=== PATIENT | female | born 1990 | race Caucasian/White ===

== ENCOUNTER 2017-05-01 19:19 | Emergency (ER) | payer OTHER ==
[~2017-05-01] VITALS: Ht 160 cm; Wt 82.0 kg
[2017-05-01] MEDS ORDERED: ALBUTEROL2.5 MG/3 M IH (20:21)
[2017-05-01 21:10] LABS: ADD MIUA? NO; BILIRUBIN NEGATIVE; BLOOD NEGATIVE; COLOR STRAW ((YELLOW)); GLUCOSE (STRIP) NEGATIVE; KETONES NEGATIVE; LEUKOCYTES NEGATIVE; NITRITE NEGATIVE; PROTEIN (STRIP) NEGATIVE; SPECIFIC GRAVITY 1.012 (1.000-1.030); UCUL ADDED? NO; UROBILINOGEN 0.2 MG/DL (0.2-1.0)
[2017-05-01] MEDS ORDERED: PREDNISONE10 M1 PO (22:19)
[2017-05-01 22:56] VITALS: BP 127/65
== END 2017-05-01 22:59 | disposition home or self-care (01) ==
LOC: EME 19:19
PROVIDERS: Physician Assistant
DX: O98.511 Other viral diseases complicating pregnancy, first trimester (principal); R09.1 Pleurisy; J06.9 Acute upper respiratory infection, unspecified; O99.511 Diseases of the respiratory system complicating pregnancy, first trimester; J45.909 Unspecified asthma, uncomplicated; Z3A.08 8 weeks gestation of pregnancy; Z88.2 Allergy status to sulfonamides; Z88.8 Allergy status to other drugs, medicaments and biological substances
CPT/HCPCS: 71020; 81003; 93005; 94640; 99281; 99284